=== PATIENT | male | born 1990 ===

== ENCOUNTER 2024-05-14 19:50 | Inpatient (IN) | payer OTHER ==
[~2024-05-14] VITALS: Ht 185.4 cm; Wt 76.3 kg
[2024-05-14 20:03] VITALS: TEMP 99.2
[2024-05-14] MEDS ORDERED: LORazepam 2 MG/ML VIAL ONE (22:17)
[2024-05-14] MEDS ORDERED: DiphenhydrAMINE HCL 50 MG/ML VIAL ONE (22:18)
[2024-05-14] MEDS ORDERED: HALOPERIDOL LACTATE 5 MG/ML VIAL ONE (22:18)
[2024-05-14 23:44] LABS: COVID AG,FIA SOURCE NASAL SWAB
[2024-05-14 23:51] LABS: SARS-COV2 (COVID) ANTIGEN,FIA Negative (Negative)
[2024-05-15] MEDS ORDERED: ZOLPIDEM TARTRATE 10 MG TABLET PO PRN
[2024-05-15] MEDS ORDERED: LORazepam 2 MG TABLET PO PRN
[2024-05-15] MEDS ORDERED: HALOPERIDOL 5 MG TABLET PO PRN
[2024-05-15 00:21] VITALS: BP 130/80; PULSE 70; O2SAT 100
[2024-05-15] MEDS: DiphenhydrAMINE HCL 50 MG/ML VIAL IM ONE (00:59)
[2024-05-15] MEDS: LORazepam 2 MG/ML VIAL IM ONE (01:00)
[2024-05-15] MEDS: HALOPERIDOL LACTATE 5 MG/ML VIAL IM ONE (01:03)
[2024-05-15 01:09] VITALS: RESP 18
[2024-05-15 01:12] VITALS: RESP 18
[2024-05-15 09:16] VITALS: RESP 18
[2024-05-15] MEDS ORDERED: MAG HYDROX/ALUMINUM HYD/SIMETH ES 30 ML SUSPENSION UDCUP PO PRN (10:45)
[2024-05-15] MEDS ORDERED: ACETAMINOPHEN 325 MG TABLET PO PRN (10:45)
[2024-05-15] MEDS ORDERED: CloNIDine HCL 0.1 MG TABLET PO PRN (10:45)
[2024-05-15] MEDS ORDERED: MAGNESIUM HYDROXIDE SUSPENSION 30 ML UDCUP PO PRN (10:45)
[2024-05-15] MEDS ORDERED: IBUPROFEN 400 MG TABLET PO PRN (10:45)
[2024-05-15] MEDS ORDERED: PETROLATUM,WHITE 28 GM JELLY TP PRN (10:45)
[2024-05-15] MEDS ORDERED: ALBUTEROL SULFATE HFA 90 MCG/PUFF 8 GM INHALER IH PRN (10:45)
[2024-05-15] MEDS ORDERED: GuaiFENesin/D-METHORPHAN [SUGAR-FREE] 200-20MG/10 ML SYRUP UDCUP PO PRN (10:45)
[2024-05-15] MEDS ORDERED: ONDANSETRON 4 MG TABLET PO PRN (10:45)
[2024-05-15] MEDS ORDERED: LOPERAMIDE HCL 2 MG CAPSULE PO PRN (10:45)
[2024-05-15] MEDS ORDERED: NICOTINE 14 MG/24 HOUR PATCH TD PRN (10:45)
[2024-05-15] MEDS ORDERED: DOCUSATE SODIUM 100 MG CAPSULE PO PRN (10:45)
[2024-05-15 20:35] VITALS: RESP 18
[2024-05-16 10:12] VITALS: RESP 18
== END 2024-05-16 12:30 | disposition left against medical advice (07) | DRG 885 ==
LOC: EMS 19:50 → 3EC 05-15 00:17
PROVIDERS: ADMIT Psychiatry & Neurology Child & Adolescent Psychiatry; ATTEND Psychiatry & Neurology Child & Adolescent Psychiatry
PROC: GZ56ZZZ Individual Psychotherapy, Supportive (ICD-10-PCS; principal; 2024-05-15)
DX: F29 Unspecified psychosis not due to a substance or known physiological condition (principal); F41.9 Anxiety disorder, unspecified; Z20.822 Contact with and (suspected) exposure to COVID-19; Z53.29 Procedure and treatment not carried out because of patient's decision for other reasons
CPT/HCPCS: 99285; J1200; J1630; J2060